=== PATIENT | female | born 1970 | race Two or more races ===

== ENCOUNTER 2024-09-19 16:55 | Emergency (ER) | payer MEDICAID, SELFPAY ==
[2024-09-19 17:24] VITALS: BP 146/81; PULSE 89; RESP 19; TEMP 37.1; O2SAT 97; BMI 31.2
--- NOTE | 2024-09-19 17:36 | PD.EDDENTL ---
ED Dental RME/HPI General Chief complaint: Dental/Oral/Throat Stated complaint: SORE THROAT X 10 DAYS; MEDICINE DID NOT HELP Time Seen by Provider: 09/19/24 17:03 Arrival date/time: 09/19/24 16:55 53-year-old female reports with complaints of 2-day history of a sore throat and ear pain. Patient was treated by her primary care provider with azithromycin but she reports no improvement of symptoms. Patient states that she has episodic fever for which she has been taking Tylenol with last dose sometime this morning she denies cough congestion headache dizziness nausea or vomiting. Limitations: no limitations Related Data Home Medications ?Medication ?Instructions ?Recorded ?Confirmed ferrous sulfate 325 mg (65 mg 325 mg PO QDAY 06/18/22 12/31/22 iron) tablet (FeroSul) metformin 1,000 mg tablet 850 mg PO BID 06/18/22 12/31/22 carvedilol 6.25 mg tablet 6.25 mg PO BID 12/31/22 12/31/22 Previous Rx's ?Medication ?Instructions ?Recorded clopidogrel 75 mg tablet 75 mg PO DAILY #30 tabs 01/01/23 atorvastatin 40 mg tablet 40 mg PO QDAY #30 tabs 03/24/24 dextromethorphan-guaifenesin 10 1 tab-cap PO Q8H PRN cough #30 caps 04/16/24 mg-200 mg capsule (Robitussin Cough-Chest Congestion DM) Allergies Allergy/AdvReac Type Severity Reaction Status Date / Time Milk Containing Products Allergy Severe Diarrhea Verified 09/19/24 16:59 (Dairy) (Milk Containing Products) Review of Systems Constitutional Constitutional: Denies chills, Reports fever(s) and Denies headache(s) ENT Ears, Nose, Mouth, and Throat: Denies headache(s), Reports nasal congestion, Denies neck pain, Denies post nasal drip, Denies sinus pressure, Reports sore throat and Denies vertigo Cardiovascular Cardiovascular: Denies chest pain and Denies dyspnea Respiratory Respiratory: Denies cough and Denies dyspnea Gastrointestinal Gastrointestinal: Denies nausea and Denies vomiting Musculoskeletal Musculoskeletal: Denies neck pain Integumentary/Breasts Skin/Breast: Reports erythema and Denies rash Neurologic Neurologic: Denies headache(s) and Denies vertigo Past Medical History Past Medical History NEUROLOGIC: Negative Neurological Disorders or Seizures CARDIAC: Positive Edema; Negative Cardiac Disorders, Congestive Heart Failure or Hypertension RESPIRATORY: Negative Chronic Obstructive Pulmonary Disease (COPD), Asthma or Bronchitis GASTROINTESTINAL: Positive Gastrointestinal Disorders, Hepatitis and Cirrhosis; Negative Gastrointestinal Bleed or Colorectal Cancer GENITOURINARY: Positive Genitourinary Disorders and Kidney Stones; Negative Renal Disease, Dialysis or Prostate Cancer REPRODUCTIVE: Positive Endometriosis and Previous Pregnancies; Negative Breast Cancer, Pelvic Inflammatory Disease or Testicular Cancer MUSCULOSKELETAL: Negative Musculoskeletal Disorders, Bone Cancer, Arthritis, Carpal Tunnel Syndrome or Fractures ENDOCRINE: Negative Endocrine Disorders, Diabetes Mellitus Type 1, Diabetes Mellitus Type 2 or Hypothyroidism HEMATOLOGIC: Positive Blood Disorders and Anemia; Negative Sickle Cell Disease OTHER HISTORY: Positive Hospitalization, Chicken Pox, Cancer and Ovarian Cancer; Negative Autoimmune Disease, Falls, Blood Transfusions, Blood Transfusion Reaction, Anesthesia Reactions, Organ Transplant, Measles, Mumps, Breast Cancer, Cervical Cancer, Colorectal Cancer, Lung Cancer, Prostate Cancer or Testicular Cancer Family History FAMILY HISTORY: Positive Family Cardiac Disorders and Family Surgery; Negative Family Psychiatric Problems, Family Respiratory Disorders, Family Gastrointestinal Problems, Family Cancer or Family Anesthesia Reaction Surgical History SURGICAL: Positive Angiogram; Negative Abdominal Surgery, Nephrectomy, Transurethral Resection, Joint Replacement, Amputation, Open Reduction Internal Fixation, Arthroscopy, Neurologic Surgery, Brain Shunt, Mastectomy, Lumpectomy, Hysterectomy, Tubal Ligation, Section, Vasectomy or Organ Transplant Social History SMOKING STATUS: Never smoker SUBSTANCE USE: does not use ED Exam General Limitations: Present no limitations General appearance: Present alert and in no apparent distress Head Head exam: Present atraumatic Eye Eye exam: Present normal appearance, PERRL and EOMI ENT ENT exam: Present normal exam, normal oropharynx and mucous membranes moist Neck Neck exam: Present normal inspection, full ROM and trachea midline Chest Chest inspection: Present normal inspection and symmetric chest wall rise Respiratory Respiratory exam: Present normal lung sounds bilaterally Cardiovascular Cardiovascular exam: Present regular rate, normal rhythm and normal heart sounds Neurological Exam Neurological exam: Present alert, oriented X3 and CN II-XII intact Psychiatric Psychiatric exam: Present normal affect and normal mood Skin Skin exam: Present warm, dry, intact and normal color Course Quality Measures none Orders Category Date Time Status Bedside Influenza A&B Antigen Test NOW Care 09/19/24 17:35 Completed Strep A Rapid Stat Lab 09/19/24 17:38 Completed Vital Signs Vital signs: Vital Signs Temperature 98.7 F 09/19/24 17:24 Pulse Rate 89 09/19/24 17:24 Respiratory Rate 19 09/19/24 17:24 Blood Pressure 146/81 H 09/19/24 17:24 Pulse Oximetry (%) 97 09/19/24 17:24 Oxygen Delivery Method Room Air 09/19/24 17:24 Dental / Oral Patient data External records reviewed:: None Clinical information provided by:: patient Social determinants that could affect healthcare access:: none Patient has the following chronic illnesses:: none How is presenting disease/condition affected by chronic disease/condition?: no chronic disease Evaluation data The following diagnostics were reviewed and interpreted by me:: lab results Lab and/or radiology exams considered but not ordered:: none Interpretation Summary: flu Medications / Prescriptions Medications or Prescriptions considered but not ordered:: none Medication administrations:: none Consultations Consultation(s) initiated? (list below): No Diagnosis Most likely diagnosis given after review of the tests above:: flu Admission Indicated Admission indicated?: not indicated Admission Request Was there a request for admission?: No Disposition Plan Disposition Plan: Discharge Discharge Attestation Discharge Attestation: The patient and all family members were given an opportunity to ask questions and understood the discharge instructions. Discharge instructions specifically effects, indications for sooner follow up or return to the emergency department, and the expected course of current diagnosis. Patient condition: Stable Discharge Plan Plan Patient Disposition: HOME (Self Care) Prescriptions/Referrals Prescriptions/Med Rec: No Action carvedilol 6.25 mg tablet 6.25 mg PO BID clopidogrel 75 mg Tablet 75 mg PO DAILY Qty: 30 0RF atorvastatin 40 mg tablet 40 mg PO QDAY Qty: 30 0RF Robitussin Cough-Chest Rj DM 10-200 mg capsule 1 tab-cap PO Q8H PRN (Reason: cough) Qty: 30 0RF ferrous sulfate [FeroSul] 325 mg (65 mg iron) tablet 325 mg PO QDAY Patient Comments: TAKE 1 TABLET BY MOUTH ONCE DAILY metformin 1,000 mg tablet 850 mg PO BID Patient Comments: TAKE 1 TABLET BY MOUTH TWICE DAILY WITH A MEAL Referrals: Chris Agee MD [Primary Care Provider] - In 1 week Problem List Clinical Impression: Flu Patient/Caregiver Discharge Instructions Discharge Activity: activity as tolerated Education Materials: ED Influenza (Adult) Additional Instructions: Take jzzb-hma-npagoit medication such as TheraFlu for your symptoms hydrate well follow-up with your primary care provider if no improvement in 5 days Print Language: Slovenian Stand Alone Forms: Maye Award Info., Patient Portal Info Letter
[2024-09-19 18:55] LABS: Strep A Rapid Negative (Negative)
[2024-09-19] MEDS: IBUPROFEN TAB 400 MG TABLET 800 MG PO (20:08)
== END 2024-09-19 20:10 | disposition home or self-care (01) ==
PROVIDERS: Physician Assistant; Emergency Provider Emergency Medicine; PCP Family Medicine
DX: J11.1 Influenza due to unidentified influenza virus with other respiratory manifestations (principal)
CPT/HCPCS: 87400; 87651; 99283; A9270

== ENCOUNTER 2024-10-27 18:23 | Emergency (ER) | payer MEDICAID, SELFPAY ==
--- NOTE | 2024-10-27 18:30 | EKG_ITS ---
[facility] Test Date: 2024-10-27 Pat Name: JUANA CID Department: Room: - Gender: Female Freezer Person: : 1970 Requested By: Ward Pineda Order Number: [id number] Reading MD: Ward Pineda Measurements Intervals [place] Rate: 71 P: 33 HI: 145 QRS: 4 QRSD: 100 T: 55 QT: 435 QTc: 476 Interpretive Statements SINUS RHYTHM POSSIBLE ANTERIOR MYOCARDIAL INFARCTION , OF INDETERMINATE AGE [30 ms Q WAVE IN V3/V4, OR R < 0.2 mV IN V4] Compared to ECG 03/23/2024 09:51:33 Myocardial infarct finding now present T-wave abnormality no longer present /store/S0/[id number].pdf
[2024-10-27 19:18] VITALS: BP 145/68; PULSE 74; RESP 18; TEMP 36.8; O2SAT 97; BMI 28.8
--- NOTE | 2024-10-27 19:34 | XR_ITS ---
Examination: PA chest single view Technique: Upright PA chest single view Indications: Chest pain shortness of breath today. Findings: Mild enlargement cardiac contour Significant vascular congestion. Suspicious for early septal edema at the lung bases Moderate osteopenia Impression: Early heart failure
--- NOTE | 2024-10-27 19:35 | PD.EDRME ---
Rapid Medical Screening Exam FOR[facility], [facility] Arrival date/time: 10/27/24 18:23 53F with history of DM, TIA, HTN, uterine cancer, cirrhosis, and hep C presents to ED with several days of CP, SOB, and generalized body swelling including facial swelling. Chief Complaint: Shortness of Breath/Dyspnea Vital signs: Vital Signs Temperature 98.3 F 10/27/24 19:18 Pulse Rate 74 10/27/24 19:18 Respiratory Rate 18 10/27/24 19:18 Blood Pressure 145/68 H 10/27/24 19:18 Pulse Oximetry (%) 97 10/27/24 19:18 Oxygen Delivery Method Room Air 10/27/24 19:18
[2024-10-27 20:41] LABS: Basophils % (Auto) 1 % (0-2.5); Eosinophils # (Auto) 0.1 Thou/mm3 (0.0-0.5); Eosinophils % (Auto) 4 % (0-10); Hematocrit 30.8 % (36.0-46.0); Immature Granulocytes % (Auto) 0 % (0-0); Immature Granulocytes Auto 0.01 Thou/mm3 (0.00-0.00); Lymphocytes # (Auto) 0.5 Thou/mm3 (1.0-4.8); Lymphocytes % (Auto) 15 % (10-50); Mean Corpuscular HGB Conc 35.7 g/dl (31.0-37.0); Mean Corpuscular Hemoglobin 32.9 pg (25.0-35.0); Mean Corpuscular Volume 92 fL (80-100); Monocytes # (Auto) 0.3 Thou/mm3 (0.0-0.8); Monocytes % (Auto) 10 % (0-12); Neutrophils # (Auto) 2.4 Thou/mm3 (1.8-7.7); Neutrophils % (Auto) 70 % (37-80); Nucleated Red Blood Cell % 0 /100 WBC (0); RDW Standard Deviation 47.9 fL (36.4-46.3); Red Blood Count 3.34 Miln/mm3 (4.00-5.20); White Blood Count 3.4 Thou/mm3 (3.6-11.0)
[2024-10-27 20:46] LABS: B-Type Natriuretic Peptide 88 pg/mL (0-100)
[2024-10-27 20:47] LABS: Alanine Aminotransferase 18 U/L (10-49); Albumin, Serum 3.4 gm/dL (3.5-5.0); Alkaline Phosphatase 151 U/L (46-116); Anion Gap 8 (7-16); Aspartate Amino Transferase 37 U/L (0-34); BUN/Creatinine Ratio 13 Ratio (12-20); Blood Urea Nitrogen 9 mg/dL (9-23); Calcium 9.1 mg/dL (8.3-10.6); Calcium (Corrected) 9.6 mg/dL (8.5-10.1); Carbon Dioxide 23.8 mMol/L (20.0-31.0); Chloride 111 mMol/L (98-107); Creatinine (Component) 0.7 mg/dL (0.6-1.3); Estimated Creatinine Clearance 96.2 mL/min (>60); Globulin 3.3 gm/dL (2.3-3.5); Glucose 188 mg/dL (74-106); Lipase 52 U/L (12-53); Osmolality,Calculated 288 (275-295); Potassium 3.8 mMol/L (3.4-5.1); Sodium 143 mMol/L (136-145); Total Protein 6.7 gm/dL (5.7-8.2); Troponin I < 0.020 ng/mL (0.0-0.045); eGFR > 60 See Note
[2024-10-27 20:49] LABS: Platelet Count 46 Thou/mm3 (140-440); Slide Review Platelets confirmed
[2024-10-27 23:08] VITALS: BP 147/82; PULSE 70; RESP 18; TEMP 36.6; O2SAT 98
[2024-10-28 03:27] VITALS: BP 137/84; PULSE 69; RESP 19; TEMP 36.2; O2SAT 98
[2024-10-28 07:16] VITALS: BP 150/79; PULSE 87; RESP 18; TEMP 36.4; O2SAT 97
--- NOTE | 2024-10-28 08:08 | PD.EDSOB ---
ED SOB =RME/HPI General Chief Complaint: Shortness of Breath/Dyspnea Stated Complaint: FACE AND BODY SWOLLEN X AM; PAIN WITH BREATHING, C Time Seen by Provider: 10/27/24 22:08 Arrival date/time: 10/27/24 18:23 RME / HPI RME / HPI Narrative: 10/27/24 18:23 53F with history of DM, TIA, HTN, uterine cancer, cirrhosis, and hep C presents to ED with several days of CP, SOB, and generalized body swelling including facial swelling. [facility] Main ED Evaluation 53 year old female presented to the ER with complaints of swelling of the legs. Symptoms of shortness of breath with physical movement, and chest pain when deep breathing started yesterday. Similar symptoms occurred in 2014 and was diagnosed with a blood clot in her neck. Patient was treated with anticoagulants and a blood transfusion for anemia. Patient has history of diabetes. hyperlipidemia, and anemia. Related Data Home Medications ?Medication ?Instructions ?Recorded ?Confirmed ferrous sulfate 325 mg (65 mg 325 mg PO QDAY 06/18/22 12/31/22 iron) tablet (FeroSul) metformin 1,000 mg tablet 850 mg PO BID 06/18/22 12/31/22 carvedilol 6.25 mg tablet 6.25 mg PO BID 12/31/22 12/31/22 Previous Rx's ?Medication ?Instructions ?Recorded clopidogrel 75 mg tablet 75 mg PO DAILY #30 tabs 01/01/23 atorvastatin 40 mg tablet 40 mg PO QDAY #30 tabs 03/24/24 dextromethorphan-guaifenesin 10 1 tab-cap PO Q8H PRN cough #30 caps 04/16/24 mg-200 mg capsule (Robitussin Cough-Chest Congestion DM) Allergies Allergy/AdvReac Type Severity Reaction Status Date / Time Milk Containing Products Allergy Severe Diarrhea Verified 10/27/24 18:30 (Dairy) (Milk Containing Products) Review of Systems Review of Systems Systems Reviewed: All systems reviewed, normal except as documented Narrative Review of Systems: Constitutional: DENIES; Fevers Eyes: DENIES; Loss of vision Head/Ear/Nose: DENIES; Loss of hearing Throat: DENIES; Dysphagia Cardiovascular: + chest pain DENIES; dyspnea or syncope Respiratory: + Shortness of breath Gastrointestinal: DENIES; Rectal bleeding or melena. Genitourinary: DENIES; Dysuria (painful or difficult urination) Musculoskeletal: +swelling of legs DENIES; Arthralgia (pain in a joint),; Skin: DENIES; Rash Neurological: DENIES; Loss of function or movement Psychiatric: DENIES; recent major life stressor, emotional problem, illicit drug use or abuse Endocrinology: + weight gain Hematologic/Lymphatic: DENIES; Abnormal bruising Allergic/Immunologic: DENIES; Urticaria (hives) Past Medical History Past Medical History CARDIAC: Positive Edema GASTROINTESTINAL: Positive Gastrointestinal Disorders, Hepatitis and Cirrhosis GENITOURINARY: Positive Genitourinary Disorders and Kidney Stones REPRODUCTIVE: Positive Endometriosis and Previous Pregnancies HEMATOLOGIC: Positive Blood Disorders and Anemia OTHER HISTORY: Positive Hospitalization, Chicken Pox, Cancer and Ovarian Cancer Family History FAMILY HISTORY: Positive Family Cardiac Disorders and Family Surgery Surgical History SURGICAL: Positive Angiogram Social History SMOKING STATUS: Never smoker SUBSTANCE USE: does not use ED Exam Narrative Physical exam: Physical Exam: General: The vital signs were reviewed. The patient is non-toxic, in no apparent distress and appears healthy with a patent airway, no respiratory distress and has no apparent circulatory problems. Head & Scalp: Normocephalic, atraumatic. Face: Appears normal and is without lesions, deformity. Ears: Left external pinna appears normal. Right external pinna appears normal. Eyes: The sclera is anicteric. No obvious photophobia. The Left and Right Orbit/Lid/Conjunctiva appears normal without swelling, discoloration or injection. Nose: The nose is without deformity, discharge or tenderness; Throat: Appears normal. The mucous membranes are pink and moist without exudates, redness or mass seen. The tongue appears normal. Neck: The neck is supple and no apparent mass or adenopathy. Chest: The chest wall is normal in size and symmetry and has no chest wall tenderness or crepitus. The patient displays normal ventilator effort without retractions, accessory muscle use and has adequate air movement bilaterally with no wheezes and no rales. Cardiovascular: Regular rate and rhythm; No murmurs, rubs, or gallops; Gastrointestinal: The abdomen appears normal. No obvious hernias or mass. The abdomen is soft and benign, non-distended, with no pain, no guarding and no rebound tenderness. Bowel sounds are present and normal sounding. No CVA tenderness. Genitourinary: Back/Spine: Extremities/Musculoskeletal/lymphatic: The bilateral upper and lower extremities are warm. There is no evidence of arterial insufficiency. There is no evidence of venous insufficiency/edema. The patient spontaneously moves bilateral upper and lower extremities with no pain and no limitation of movement. There is no apparent, injury or trauma. Skin: The skin is warm, dry and intact. No rashes. No petechia. No purpura. No abnormal bruising. The color is appropriate with no cyanosis. Mental status/Psychiatric: Mental status is appropriate for age. The patient has no apparent delusions, visual hallucinations, no apparent audible hallucinations. The patient has no apparent suicidal thoughts/ideation and no apparent homicidal thoughts/ideation. Neurological: The patient is awake, alert, interactive, cordial, cooperative and is oriented to name and situation. The patient follows commands and answers historical question with no impairment. There is no visual disturbance apparent. The pupils are equal and reactive bilaterally with normal eye movements and no diplopia The bilateral upper and lower extremities have normal strength, normal range of motion and normal functioning. The gait, station and balance appear to be baseline with no acute change Course Course Course Narrative: chest xray ordered to help determine etiology of shortness of breath. Quality Measures none Orders Category Date Time Status CT Screening NOW Care 10/28/24 10:12 Completed EKG (ED ONLY) *Do not use* NOW Care 10/27/24 18:[address] angio chest Stat Exams 10/28/24 10:11 Completed EKG (ED Only) Stat Exams 10/27/24 18:30 Draft XR chest 1V portable Stat Exams 10/27/24 19:34 Completed B-Type Natriuretic Peptide Stat Lab 10/27/24 19:55 Completed CBC Stat Lab 10/27/24 19:55 Completed Comprehensive Metabolic Panel Stat Lab 10/27/24 19:55 Completed Lipase Stat Lab 10/27/24 19:55 Completed Troponin I Stat Lab 10/27/24 19:55 Completed Troponin I Stat Lab 10/28/24 10:19 Completed Vital Signs Vital signs: Vital Signs Temperature 98.3 F 10/27/24 19:18 Pulse Rate 74 10/27/24 19:18 Respiratory Rate 18 10/27/24 19:18 Blood Pressure 145/68 H 10/27/24 19:18 Pulse Oximetry (%) 97 10/27/24 19:18 Oxygen Delivery Method Room Air 04/10/25 19:18 Pulse ox is 97% on room air which is adequate. Shortness of Breath / Dyspnea MDM Narrative MDM Narrative:: Patient has a chief complaint of dyspnea on exertion feels numbness and tingling to her face and arm when she exerts herself and believes her legs are swollen. Clinically she has no obvious edema. Her lungs are clear. She has some history of a blood clot in her neck to put her on Plavix when she lived in [place] but the exact diagnosis is unknown to us. Medical workup today and note this patient has been here for a long time included white count of 3.4 hemoglobin of 11.0 platelet count is low at 46,000 but this is chronically low sodium 143 potassium 3 8 chloride 111 CO2 24 anion gap is 8 BUN 9 creatinine 0.7 glucose 188 total bilirubin is 2.0 but is chronically in this range. AST is 37 ALT is 18 troponin is negative BNP is negative urine was not collected. EKG reveals no ST elevation OR. CTA of the chest reveals no pulmonary embolus there is a small nodule pleural-based of unknown etiology or duration. This information was was explained to the patient at the time of discharge and was instructed to follow-up. Chest x-ray was essentially negative with questionable mild CHF changes although BNP was negative. A second troponin came back also negative. Went back and rediscussed the whole case with the patient as the medical workup is essentially negative. And she is having no chest pain no shortness of breath at rest. She still states she is asking why her left face and left arm has numbness and she states this only occurs when she exerts herself. We ambulated the patient around the department and she had no reproduction of her shortness of breath or numbness or tingling in her face or left arm. Currently patient has no objective findings there is no evidence of stroke as there is no other symptomatology and patient was feeling much better and desires to go home. She is nicky follow-up with her doctor get referred to her specialist and return if getting worse in any way. She was clearly instructed to make an appointment to follow-up with her doctor about the nodule that this will need to follow-up and copies of the CT were given to her so her doctor will have the information Patient data External records reviewed:: [facility] previous records Clinical information provided by:: patient Social determinants that could affect healthcare access:: none Patient has the following chronic illnesses:: hyperlipidemia, hypertension, type 2 diabetes How is presenting disease/condition affected by chronic disease/condition?: exacerbated by Evaluation data The following diagnostics were reviewed and interpreted by me:: lab results, radiology exam(s) and EKG tracing(s) ( EKG#1: EKG at xx hours. Interpreted by me: sinus rhythm, rate xx) Lab and/or radiology exams considered but not ordered:: none Interpretation Summary: Ordering Physician: Ward Pineda PA-C Date of Service: 10/27/24 Procedure(s): XR chest 1V portable Accession Number(s): [id number] cc: María Agee MD; Gerhard Hurley MD; Ward Pineda PA-C~ Examination: PA chest single view Technique: Upright PA chest single view Indications: Chest pain shortness of breath today. Findings: Mild enlargement cardiac contour Significant vascular congestion. Suspicious for early septal edema at the lung bases Moderate osteopenia Impression: Early heart failure Dictated By: Gerhard Hurley MD Signed By: <Electronically signed by Gerhard Hurley MD in [place]> 10/27/242037 Ordering Physician: Brandon Durant MD Date of Service: 10/28/24 Procedure(s): CT angio chest Accession Number(s): [id number] cc: Chris Mejias MD; María Agee MD; Brandon Durant MD~ Examination: CTA chest with intravenous contrast 2-D reconstructions 3-D reconstructions, vascular Date and time of exam: 10/28/2024, 12:33 PM INDICATION: Chest pain shortness of breath CTDI: vol (mGy) 17.56 DLP: (mGycm) 397 Technique: Multiple axial sections of the thorax have been obtained. 3 mm slice thickness, from below the hemidiaphragms to above the apices of the lungs. Mediastinal and lung density settings have been obtained. 2-D sagittal and coronal reconstructions. 3-D angiographic renderings, 3-D volume renderings, 3D post processing, vascular maximum intensity projections obtained. Contrast administered is 100 MLS Isovue-370. Low dose protocols were performed. One or more of the following dose reduction techniques were used; automated exposure control, adjustment of the mA and/or KV according to patient size, use of iterative reconstruction technique. Findings: Pulmonary arterial system opacifies normally without evidence of filling defects. Aorta appears unremarkable. 2.7 x 1.7 cm pleural-based oval mass posterior right lower lobe. Trace left pleural effusion. Right apical scarring. Lungs otherwise clear. No pneumothorax. No acute bony abnormality. IMPRESSION: No evidence of pulmonary embolism. 2.7 x 1.7 cm mass right lower lobe as above. Differential diagnosis includes benign and malignant etiologies and includes round pneumonia. Follow-up management according to Fleischner's side guidelines is recommended. Dictated By: Chris Mejias MD Signed By: <Electronically signed by Chris Mejias MD in OV> 10/28/24 1316 Medications / Prescriptions Medications or Prescriptions considered but not ordered:: none Medication administrations:: see above (if any) Consultations Consultation(s) initiated? (list below): Yes Consultation #1 (Physician, Specialty, Details): [id number]: I spoke with Dr. Rosario, Cleaning Attendant, regarding echo on 03/23/24 Diagnosis Shortness of Breath Differential Diagnosis: acute exacerbation of chronic obstructive airways disease, congestive heart failure, community acquired pneumonia and pulmonary embolism Most likely diagnosis given after review of the tests above:: CHARLES thrombocytopenia lung nodule Admission Indicated Admission indicated?: not indicated Admission Request Was there a request for admission?: No Disposition Plan Disposition Plan: Discharge Discharge Attestation Discharge Attestation: The patient and all family members were given an opportunity to ask questions and understood the discharge instructions. Discharge instructions specifically effects, indications for sooner follow up or return to the emergency department, and the expected course of current diagnosis. Patient condition: Stable Discharge Plan Plan Patient Disposition: HOME (Self Care) Prescriptions/Referrals Prescriptions/Med Rec: No Action carvedilol 6.25 mg tablet 6.25 mg PO BID clopidogrel 75 mg Tablet 75 mg PO DAILY Qty: 30 0RF atorvastatin 40 mg tablet 40 mg PO QDAY Qty: 30 0RF Robitussin Cough-Chest Rj DM 10-200 mg capsule 1 tab-cap PO Q8H PRN (Reason: cough) Qty: 30 0RF ferrous sulfate [FeroSul] 325 mg (65 mg iron) tablet 325 mg PO QDAY Patient Comments: TAKE 1 TABLET BY MOUTH ONCE DAILY metformin 1,000 mg tablet 850 mg PO BID Patient Comments: TAKE 1 TABLET BY MOUTH TWICE DAILY WITH A MEAL Referrals: María Agee MD [Primary Care Provider] - In 1 week Problem List Clinical Impression: CHARLES (dyspnea on exertion), Lung nodule, Thrombocytopenia Patient/Caregiver Discharge Instructions Education Materials: ED Shortness of Breath (Dyspnea), ED Pulmonary Nodule, Solitary Additional Instructions: Today had a workup including a CT of your chest which reveals no pulmonary embolus and troponin was negative twice today. There is no evidence of a heart attack. The cause of your shortness of breath with exertion is unclear. Make sure you follow-up with your doctor to address this further and return if you are getting worse. As we discussed you have a nodule in the periphery of the lung which may be pleural or lung based. This will need follow-up as the etiology or cause of this is unclear at this time. Take the CT scan report to your doctor and let them evaluate this and refer you as needed. Note that if you are getting worse in any way please return for reevaluation. Print Language: Greenlandic Stand Alone Forms: Maye Award Info., Patient Portal Info Letter
--- NOTE | 2024-10-28 10:11 | XR_ITS ---
Examination: CTA chest with intravenous contrast 2-D reconstructions 3-D reconstructions, vascular Date and time of exam: 10/28/2024, 12:33 PM INDICATION: Chest pain shortness of breath CTDI: vol (mGy) 17.56 DLP: (mGycm) 397 Technique: Multiple axial sections of the thorax have been obtained. 3 mm slice thickness, from below the hemidiaphragms to above the apices of the lungs. Mediastinal and lung density settings have been obtained. 2-D sagittal and coronal reconstructions. 3-D angiographic renderings, 3-D volume renderings, 3D post processing, vascular maximum intensity projections obtained. Contrast administered is 100 MLS Isovue-370. Low dose protocols were performed. One or more of the following dose reduction techniques were used; automated exposure control, adjustment of the mA and/or KV according to patient size, use of iterative reconstruction technique. Findings: Pulmonary arterial system opacifies normally without evidence of filling defects. Aorta appears unremarkable. 2.7 x 1.7 cm pleural-based oval mass posterior right lower lobe. Trace left pleural effusion. Right apical scarring. Lungs otherwise clear. No pneumothorax. No acute bony abnormality. IMPRESSION: No evidence of pulmonary embolism. 2.7 x 1.7 cm mass right lower lobe as above. Differential diagnosis includes benign and malignant etiologies and includes round pneumonia. Follow-up management according to Fleischner's side guidelines is recommended.
[2024-10-28 10:42] LABS: Troponin I < 0.020 ng/mL (0.0-0.045)
[2024-10-28 15:11] VITALS: BP 121/71; PULSE 83; RESP 16; TEMP 36.8; O2SAT 98
--- NOTE | 2024-10-28 15:40 | PC.NURSE ---
pt ambulated around unit x1 no complaints.
== END 2024-10-28 16:48 | disposition home or self-care (01) ==
PROVIDERS: Physician Assistant; Emergency Provider Emergency Medicine; PCP Family Medicine
DX: R06.09 Other forms of dyspnea (principal); R91.1 Solitary pulmonary nodule; D69.6 Thrombocytopenia, unspecified; E11.9 Type 2 diabetes mellitus without complications; I10 Essential (primary) hypertension; K74.60 Unspecified cirrhosis of liver; B19.20 Unspecified viral hepatitis C without hepatic coma; E78.5 Hyperlipidemia, unspecified; Z86.73 Personal history of transient ischemic attack (TIA), and cerebral infarction without residual deficits; Z85.42 Personal history of malignant neoplasm of other parts of uterus
CPT/HCPCS: 36415; 71045; 71275; 80053; 81001; 83690; 83880; 84484; 85025; 93005; 99285; A4649; Q9967

== ENCOUNTER 2024-12-31 17:46 | Emergency (ER) | payer MEDICAID, SELFPAY ==
--- NOTE | 2024-12-31 18:48 | PD.EDRECHK ---
ED Recheck Abnl Lab Rx-RME/HPI General Chief Complaint: Recheck/Abnormal Lab/Rx Stated Complaint: Pt. states her sugar has been high since Time Seen by Provider: 12/31/24 18:45 Arrival date/time: 12/31/24 17:46 RME / HPI RME / HPI narrative: This section includes all my notes and documentations, including HPI, PE, and ED course. Azam Arias MD HPI: 54 y/o female with Hx of Type II DM presents with elevated blood sugar level x 3 days. Patient's last blood sugar read just SHOP ROUTER after a meal was 277 mg/dL. Patient was doing well while taking Ozempic and had her dose of Metformin decrease to 1 per day, but now her blood sugar remains elevated. She was advised to increase Metformin last night, but has noted no improvement. Denies headache. No other complaints. ROS: All negative except as documented in HPI. Physical Exam: General: Alert and oriented. No acute distress when remaining still. Eyes: Conjunctivae and lids clear. ENT: No nasal congestion. Neck: Supple. Heart: RRR. Lungs: No respiratory distress. Good air movement. No rhonchi, wheezing, rales. Abdomen: Soft and nontender. Normal bowel sounds. No distension. No rebound or guarding. Back: No CVA tenderness. Skin: Warm and dry. Neuro: Alert and oriented X 3. I reviewed all diagnostic test results: Blood tests unremarkable except glucose 300. At this point, diagnoses include: Hyperglycemia. Treatment here included: Insulin. Recommended outpatient care. Based on my best medical judgment, made decision no further evaluation or treatment indicated at this time. Patient understands and agrees to the discharge instructions customized and printed, see below. Discharge Instructions from Dr. Arias printed for you: 1. After evaluation, your high blood sugar was treated with insulin. 2. Take Janumet twice daily as prescribed. Stop all your current home diabetic medications. 3. See a private doctor on 01/02/2025 for recheck and further care. Ask for help with better management of your diabetes. 4. Seek immediate medical care if home sugar level is over 400 or with any concerns. Below 400, there is no emergency. Azam Arias MD Related Data Home Medications ?Medication ?Instructions ?Recorded ?Confirmed ferrous sulfate 325 mg (65 mg 325 mg PO QDAY 06/18/22 12/31/22 iron) tablet (FeroSul) metformin 1,000 mg tablet 850 mg PO BID 06/18/22 12/31/22 carvedilol 6.25 mg tablet 6.25 mg PO BID 12/31/22 12/31/22 Previous Rx's ?Medication ?Instructions ?Recorded clopidogrel 75 mg tablet 75 mg PO DAILY #30 tabs 01/01/23 atorvastatin 40 mg tablet 40 mg PO QDAY #30 tabs 03/24/24 dextromethorphan-guaifenesin 10 1 tab-cap PO Q8H PRN cough #30 caps 04/16/24 mg-200 mg capsule (Robitussin Cough-Chest Congestion DM) sitagliptin phosphate 50 1 tab PO BID #60 tabs 12/31/24 mg-metformin 1,000 mg tablet (Janumet) Allergies Allergy/AdvReac Type Severity Reaction Status Date / Time Milk Containing Products Allergy Severe Diarrhea Verified 12/31/24 17:53 (Dairy) (Milk Containing Products) Review of Systems Review of Systems Systems Reviewed: All systems reviewed, normal except as documented Past Medical History Past Medical History CARDIAC: Positive Edema GASTROINTESTINAL: Positive Gastrointestinal Disorders, Hepatitis and Cirrhosis GENITOURINARY: Positive Genitourinary Disorders and Kidney Stones REPRODUCTIVE: Positive Endometriosis and Previous Pregnancies ENDOCRINE: Positive Diabetes Mellitus Type 2 HEMATOLOGIC: Positive Blood Disorders and Anemia OTHER HISTORY: Positive Hospitalization, Chicken Pox, Cancer and Ovarian Cancer Family History FAMILY HISTORY: Positive Family Cardiac Disorders and Family Surgery Surgical History SURGICAL: Positive Angiogram ED Exam Narrative Physical exam: Refer to HPI above Course Quality Measures none Orders Category Date Time Status Bilirubin,Direct Stat Lab 12/31/24 19:05 Completed CBC Stat Lab 12/31/24 19:05 Completed CMP [Comprehensive Metabolic Panel] Stat Lab 12/31/24 19:05 Completed Free T4 (Free Thyroxine) Stat Lab 12/31/24 19:05 Completed Hemoglobin A1C [Glycohemoglobin w (eAG)] Stat Lab 12/31/24 19:05 Completed Magnesium Stat Lab 12/31/24 19:05 Completed TSH [Thyroid Stimulating Hormone] Stat Lab 12/31/24 19:05 Completed UA, C/S IF [Urinalysis, C/S if Indicated] Stat Lab 12/31/24 18:52 Stop Req Insulin Regular Med 12/31/24 19:53 Discontinued 8 unit SC X1 ONE Vital Signs Vital signs: Vital Signs Temperature 99.1 F 12/31/24 18:57 Pulse Rate 80 12/31/24 18:57 Respiratory Rate 18 12/31/24 18:57 Blood Pressure 143/82 H 12/31/24 18:57 Pulse Oximetry (%) 95 12/31/24 18:57 Oxygen Delivery Method Room Air 12/31/24 18:57 Recheck / Abnormal Lab / Rx MDM Narrative MDM Narrative:: Scribe Attestation: Evelyne Martinez, am scribing for and in the presence of Dr. Arias. Provider Notation: Although this document has been carefully reviewed, there may still be some phonetic and other typographical errors.? These errors are purely grammatical due to imperfections in the software program and should not be construed in any way to? compromise the substance of the patient's medical care during this visit. 54 y/o female with Hx of Type II DM presents with elevated blood sugar level x 3 days. Patient's last blood sugar read just SHOP ROUTER after a meal was 277 mg/dL. Patient was doing well while taking Ozempic and had her dose of Metformin decrease to 1 per day, but now her blood sugar remains elevated. She was advised to increase Metformin last night, but has noted no improvement. Denies headache. No other complaints. Patient data External records reviewed:: [facility] previous records (Reviewed prior ED records from 10/28/24. Patient was seen for CHARLES (dyspnea on exertion).) Clinical information provided by:: patient Social determinants that could affect healthcare access:: none Patient has the following chronic illnesses:: Hepatitis, Cirrhosis, Kidney Stones, Endometriosis, Diabetes Mellitus Type 2, Anemia How is presenting disease/condition affected by chronic disease/condition?: exacerbated by Evaluation data The following diagnostics were reviewed and interpreted by me:: lab results Lab and/or radiology exams considered but not ordered:: None Interpretation Summary: I reviewed all diagnostic test results: Blood tests unremarkable except glucose 300. Medications / Prescriptions Medications or Prescriptions considered but not ordered:: None Medication administrations:: Medication Administration History Discontinued Medications Insulin Human Regular (Insulin Hum Regular 1 Unit/0.01 Ml (Per Unit)) 8 unit SC X1 ONE Stop: 12/31/24 19:54 Last Admin: 12/31/24 20:06 Dose: 8 unit Documented By: CORINE Co-signed By: EE Insulin Consultations Consultation(s) initiated? (list below): No Diagnosis Recheck Differential Diagnosis: other (Hyperglycemia, Medication-induced Hyperglycemia) Most likely diagnosis given after review of the tests above:: Hyperglycemia Admission Indicated Admission indicated?: not indicated Explain why admission is indicated or not indicated:: Without severe illness, there was no indication for admission. Admission Request Was there a request for admission?: No Disposition Plan Disposition Plan: Discharge Discharge Attestation Discharge Attestation: The patient and all family members were given an opportunity to ask questions and understood the discharge instructions. Discharge instructions specifically effects, indications for sooner follow up or return to the emergency department, and the expected course of current diagnosis. Patient condition: Stable Discharge Plan Plan Patient Disposition: HOME (Self Care) Prescriptions/Referrals Prescriptions/Med Rec: New Janumet 50-1,000 mg tablet 1 tab PO BID Qty: 60 0RF No Action carvedilol 6.25 mg tablet 6.25 mg PO BID clopidogrel 75 mg Tablet 75 mg PO DAILY Qty: 30 0RF atorvastatin 40 mg tablet 40 mg PO QDAY Qty: 30 0RF Robitussin Cough-Chest Rj DM 10-200 mg capsule 1 tab-cap PO Q8H PRN (Reason: cough) Qty: 30 0RF ferrous sulfate [FeroSul] 325 mg (65 mg iron) tablet 325 mg PO QDAY Patient Comments: TAKE 1 TABLET BY MOUTH ONCE DAILY metformin 1,000 mg tablet 850 mg PO BID Patient Comments: TAKE 1 TABLET BY MOUTH TWICE DAILY WITH A MEAL Referrals: Chris Agee MD [Primary Care Provider] - In 1 week Problem List Clinical Impression: Hyperglycemia Patient/Caregiver Discharge Instructions Discharge Activity: activity as tolerated Education Materials: ED Diabetes with High Blood Sugar Additional Instructions: Discharge Instructions from Dr. Arias printed for you: 1. After evaluation, your high blood sugar was treated with insulin. 2. Take Janumet twice daily as prescribed. Stop all your current home diabetic medications. 3. See a private doctor on 01/02/2025 for recheck and further care. Ask for help with better management of your diabetes. 4. Seek immediate medical care if home sugar level is over 400 or with any concerns. Below 400, there is no emergency. Instrucciones de lo del Dr. Arias impresas para usted: 1. Tras la evaluaci?n, se trat? robbins nivel alto de az?car en drew con insulina. 2. [place] Janumet dos veces al d?a seg?n lo prescrito. Suspenda todos placido medicamentos para la diabetes que funmi actualmente en casa. 3. Consulte con un m?dico particular el 02/01/2025 para salvador nueva evaluaci?n y atenci?n adicional. Solicite ayuda para un mejor control de robbins diabetes. 4. Busque atenci?n m?dica inmediata si robbins nivel de az?car en casa es superior a 400 o si tiene alguna inquietud. Por debajo de 400, no hay emergencia. Print Language: Samoan Stand Alone Forms: Maye Award Info., Patient Portal Info Letter
[2024-12-31 18:57] VITALS: BP 143/82; PULSE 80; RESP 18; TEMP 37.3; O2SAT 95
[2024-12-31 19:19] LABS: Basophils % (Auto) 1 % (0-2.5); Eosinophils # (Auto) 0.1 Thou/mm3 (0.0-0.5); Eosinophils % (Auto) 2 % (0-10); Hematocrit 31.9 % (36.0-46.0); Hemoglobin 11.6 g/dL (12.0-16.0); Immature Granulocytes % (Auto) 0 % (0-0); Lymphocytes # (Auto) 0.6 Thou/mm3 (1.0-4.8); Lymphocytes % (Auto) 15 % (10-50); Mean Corpuscular HGB Conc 36.4 g/dl (31.0-37.0); Mean Corpuscular Hemoglobin 31.7 pg (25.0-35.0); Mean Corpuscular Volume 87 fL (80-100); Monocytes # (Auto) 0.4 Thou/mm3 (0.0-0.8); Monocytes % (Auto) 10 % (0-12); Neutrophils # (Auto) 3.2 Thou/mm3 (1.8-7.7); Neutrophils % (Auto) 73 % (37-80); Nucleated Red Blood Cell % 0 /100 WBC (0); Red Blood Count 3.66 Miln/mm3 (4.00-5.20); White Blood Count 4.3 Thou/mm3 (3.6-11.0)
[2024-12-31 19:33] LABS: Platelet Count 52 Thou/mm3 (140-440)
[2024-12-31 19:35] LABS: Glucose Estimated Average 186 mg/dL (80-131); Hemoglobin A1C 8.1 % Hgb (4.8-6.0)
[2024-12-31 19:44] LABS: Alanine Aminotransferase 24 U/L (10-49); Albumin, Serum 3.2 gm/dL (3.5-5.0); Alkaline Phosphatase 155 U/L (46-116); Anion Gap 10 (7-16); Aspartate Amino Transferase 34 U/L (0-34); BUN/Creatinine Ratio 6 Ratio (12-20); Bilirubin,Direct 0.8 mg/dL (0.0-0.3); Bilirubin,Total 2.3 mg/dL (0.3-1.2); Blood Urea Nitrogen 6 mg/dL (9-23); Calcium 8.3 mg/dL (8.3-10.6); Calcium (Corrected) 8.9 mg/dL (8.5-10.1); Chloride 108 mMol/L (98-107); Free T4 (Free Thyroxine) 1.04 ng/dL (0.89-1.76); Globulin 3.1 gm/dL (2.3-3.5); Glucose 300 mg/dL (74-106); Magnesium 1.6 mg/dL (1.6-2.6); Osmolality,Calculated 284 (275-295); Sodium 138 mMol/L (136-145); Thyroid Stimulating Hormone 0.95 uIU/mL (0.55-4.78); Total Protein 6.3 gm/dL (5.7-8.2); eGFR > 60 See Note
[2024-12-31] MEDS: INSULIN HUM REGULAR 1 UNIT/0.01 ML (PER UNIT) 8 UNIT SC (20:06)
[2024-12-31 20:13] LABS: Slide Review Platelets confirmed
[2024-12-31 20:22] VITALS: RESP 18
== END 2024-12-31 20:23 | disposition home or self-care (01) ==
PROVIDERS: Emergency Provider Emergency Medicine; PCP Family Medicine
DX: E11.65 Type 2 diabetes mellitus with hyperglycemia (principal)
CPT/HCPCS: 36415; 80053; 81001; 82248; 83036; 83735; 84439; 84443; 85025; 96372; 99283; J1815

== ENCOUNTER 2025-02-07 10:13 | Outpatient (RCR) | payer MEDICAID, SELFPAY | END 2025-02-16 23:59 | disposition home or self-care (01) | LOC: SCTC 10:13 | PROVIDERS: PCP Family Medicine; Referring Provider Family Medicine; Visit Provider Nurse Practitioner Family | DX: D69.6 Thrombocytopenia, unspecified (principal); R71.8 Other abnormality of red blood cells; D73.1 Hypersplenism; K74.60 Unspecified cirrhosis of liver; Z86.19 Personal history of other infectious and parasitic diseases; Z85.42 Personal history of malignant neoplasm of other parts of uterus | CPT/HCPCS: 99212; G0463 ==

== ENCOUNTER 2025-03-21 14:28 | Emergency (ER) | payer MEDICAID, SELFPAY ==
[2025-03-21 14:58] VITALS: BP 134/76; PULSE 87; RESP 18; TEMP 36.9; O2SAT 97
--- NOTE | 2025-03-21 15:07 | EKG_ITS ---
[facility] Test Date: 2025-03-21 Pat Name: JUANA CID Department: Room: - Gender: Female Supervisor Varnish: : 1970 Requested By: Scotty Carrillo Order Number: [id number] Reading MD: Scotty Carrillo Measurements Intervals [place] Rate: 76 P: 29 WI: 140 QRS: -9 QRSD: 109 T: 84 QT: 411 QTc: 464 Interpretive Statements SINUS RHYTHM MODERATE VOLTAGE CRITERIA FOR LVH, CONSIDER NORMAL VARIANT [MEETS CRITERIA IN ONE OF: R(aVL), S(V1), R(V5), R(V5/V6)+S(V1)] POSSIBLE ANTERIOR MYOCARDIAL INFARCTION , OF INDETERMINATE AGE [30 ms Q WAVE IN V3/V4, OR R < 0.2 mV IN V4] MODERATE T-WAVE ABNORMALITY, CONSIDER LATERAL ISCHEMIA [-0.1+ mV T-WAVE IN I/aVL/V5/V6] Compared to ECG 10/27/2024 19:17:14 T-wave abnormality now present Possible ischemia now present Myocardial infarct finding still present /store/S0/[id number]/ecg/[id number].pdf
--- NOTE | 2025-03-21 15:07 | XR_ITS ---
Examination: PA lateral chest 2 views TECHNIQUE: Upright PA lateral chest 2 views Date and time: March 21, 2025 1518 hours, comparison October 27, 2024 INDICATIONS: Chest pain dizziness today. FINDINGS: Normal heart size Lungs are clear. The osseous structures are demineralized IMPRESSION: No active disease
--- NOTE | 2025-03-21 15:07 | PD.EDRME ---
Rapid Medical Screening Exam E Arrival date/time: 03/21/25 14:28 54-year-old female with a history of hyperlipidemia, hypertension, type 2 diabetes presents to the emergency room with a chief complaint of sternal chest pain, weakness, fatigue x 2 days. Patient states she recently had heart surgery done a month ago. I have greeted and performed a focused initial assessment of this patient. A comprehensive ED assessment and evaluation of the patient, analysis of all test results, and completion of the medical decision making process will be conducted by additional ED providers. Chief Complaint: Nausea/Vomiting/Diarrhea Vital signs: Vital Signs Temperature 98.4 F 03/21/25 14:58 Pulse Rate 87 03/21/25 14:58 Respiratory Rate 18 03/21/25 14:58 Blood Pressure 134/76 H 03/21/25 14:58 Pulse Oximetry (%) 97 03/21/25 14:58 Oxygen Delivery Method Room Air 03/21/25 14:58 Vital signs reviewed by provider: Yes
[2025-03-21 16:14] LABS: Basophils # (Auto) 0.0 Thou/mm3 (0.0-0.2); Basophils % (Auto) 0 % (0-2.5); Eosinophils # (Auto) 0.1 Thou/mm3 (0.0-0.5); Eosinophils % (Auto) 3 % (0-10); Hematocrit 33.1 % (36.0-46.0); Hemoglobin 11.6 g/dL (12.0-16.0); Immature Granulocytes Auto 0.01 Thou/mm3 (0.00-0.00); Lymphocytes # (Auto) 0.5 Thou/mm3 (1.0-4.8); Lymphocytes % (Auto) 15 % (10-50); Mean Corpuscular HGB Conc 35.0 g/dl (31.0-37.0); Mean Corpuscular Hemoglobin 32.0 pg (25.0-35.0); Mean Corpuscular Volume 91 fL (80-100); Monocytes # (Auto) 0.3 Thou/mm3 (0.0-0.8); Monocytes % (Auto) 9 % (0-12); Neutrophils # (Auto) 2.6 Thou/mm3 (1.8-7.7); Neutrophils % (Auto) 73 % (37-80); Nucleated Red Blood Cell # 0.00 Thou/mm3 (0.00-0.00); Nucleated Red Blood Cell % 0 /100 WBC (0); RDW Standard Deviation 47.8 fL (36.4-46.3); Red Blood Count 3.63 Miln/mm3 (4.00-5.20); White Blood Count 3.6 Thou/mm3 (3.6-11.0)
[2025-03-21 16:33] LABS: Collection Type, Urine Clean Catch
[2025-03-21 16:34] LABS: Platelet Count 46 Thou/mm3 (140-440)
[2025-03-21 16:36] LABS: B-Type Natriuretic Peptide 48 pg/mL (0-100)
[2025-03-21 16:41] LABS: Alanine Aminotransferase 19 U/L (10-49); Albumin, Serum 3.5 gm/dL (3.5-5.0); Albumin/Globulin Ratio 1.3 (1.2-2.2); Anion Gap 11 (7-16); Aspartate Amino Transferase 34 U/L (0-34); BUN/Creatinine Ratio 13 Ratio (12-20); Bilirubin,Total 2.8 mg/dL (0.3-1.2); Blood Urea Nitrogen 10 mg/dL (9-23); Calcium 9.4 mg/dL (8.3-10.6); Calcium (Corrected) 9.8 mg/dL (8.5-10.1); Carbon Dioxide 22.7 mMol/L (20.0-31.0); Chloride 112 mMol/L (98-107); Creatinine (Component) 0.8 mg/dL (0.6-1.3); Estimated Creatinine Clearance 79.5 mL/min (>60); Globulin 2.8 gm/dL (2.3-3.5); Glucose 272 mg/dL (74-106); Magnesium 1.8 mg/dL (1.6-2.6); Osmolality,Calculated 299 (275-295); Potassium 3.7 mMol/L (3.4-5.1); Sodium 146 mMol/L (136-145); Total Protein 6.3 gm/dL (5.7-8.2); Troponin I < 0.020 ng/mL (0.0-0.045); eGFR > 60 See Note
[2025-03-21 16:42] LABS: Alkaline Phosphatase 104 U/L (46-116)
[2025-03-21 16:56] LABS: Bilirubin,Urine Negative (Negative); Blood,Urine Negative (Negative); Clarity,Urine Hazy (Clear/Hazy); Color,Urine Yellow (Lt Yel-Yel); Culture Indicated,Urine Not Indicated; Glucose, Urine Negative (Negative); Ketones,Urine Negative (Negative); Leukocyte Esterase,Urine Negative (Negative); Nitrite,Urine Negative (Negative); PH,Urine 6.5 (5.0-7.0); Protein,Urine Negative (Neg - Trace); RBC,Urine 4 /hpf (0-3); Specific Gravity,Urine 1.020 (1.001-1.035); Squamous Epithelial Cell,Urine 19 /hpf (0-5); Urobilinogen,Urine Negative mg/dL (0.0-1.0); WBC,Urine 8 /hpf (0-5)
[2025-03-21 17:03] LABS: INR 1.3 (0.9-1.3); Partial Thromboplastin Time 31.1 Seconds (22.0-36.0); Prothrombin Time 13.9 Seconds (9.0-12.2)
[2025-03-21 17:08] LABS: Slide Review Platelets confirmed
--- NOTE | 2025-03-21 18:57 | EDNOTE_ITS ---
Nausea/Vomit./Diarrhea-RME/HPI General Chief complaint: Nausea/Vomiting/Diarrhea Stated complaint: SEVERE N/V, DIZZY, SWEATING, CHEST PRESSURE Time Seen by Provider: 03/21/25 18:27 Arrival date/time: 03/21/25 14:28 RME / HPI RME / HPI Narrative: 03/21/25 14:28 54-year-old female with a history of hyperlipidemia, hypertension, type 2 diabetes presents to the emergency room with a chief complaint of sternal chest pain, weakness, fatigue x 2 days. Patient states she recently had heart surgery done a month ago. I have greeted and performed a focused initial assessment of this patient. A comprehensive ED assessment and evaluation of the patient, analysis of all test results, and completion of the medical decision making process will be conducted by additional ED providers. ----- See [facility] for Dr. Arias's HPI documentation. Related Data Home Medications ?Medication ?Instructions ?Recorded ?Confirmed ferrous sulfate 325 mg (65 mg 325 mg PO QDAY 06/18/22 12/31/22 iron) tablet (FeroSul) metformin 1,000 mg tablet 850 mg PO BID 06/18/2212/31 carvedilol 6.25 mg tablet 6.25 mg PO BID 12/31/2212/18 Previous Rx's ?Medication ?Instructions ?Recorded clopidogrel 75 mg tablet 75 mg PO DAILY #30 tabs 12/18 12/09 atorvastatin 40 mg tablet 40 mg PO QDAY #30 tabs 03/24 dextromethorphan-guaifenesin 10 1 tab-cap PO Q8H PRN c ough #30 caps 04/16/24 mg-200 mg capsule (Robitussin Cough-Chest Congestion DM) sitagliptin phosphate 50 1 tab PO BID #60 tabs mg-metformin 1,000 mg tablet (Janumet) acetaminophen 300 mg-codeine 30 mg 2 tab PO Q8H PRN pa in #20 tabs 03/21/25 tablet ondansetron 4 mg disintegrating 4 mg PO TID PRN nausea and 03/21/25 tablet vomiting 30 days #10 tabs Allergies Allergy/AdvReac Type Severity Reaction Status Date / Time Milk Containing Products Allergy Severe Diarrhea Verified 03/21/25 14:34 (Dairy) (Milk Containing Products) Review of Systems Review of Systems Systems Reviewed: All systems reviewed, normal except as documented Past Medical History Past Medical History NEUROLOGIC: Negative Neurological Disorders or Seizures CARDIAC: Positive Edema; Negative Cardiac Disorders, Congestive Heart Failure or Hypertension RESPIRATORY: Negative Chronic Obstructive Pulmonary Disease (COPD), Asthma or Bronchitis GASTROINTESTINAL: Positive Gastrointestinal Disorders, Hepatitis and Cirrhosis; Negative Gastrointestinal Bleed or Colorectal Cancer GENITOURINARY: Positive Genitourinary Disorders and Kidney Stones; Negative Renal Disease, Dialysis or Prostate Cancer REPRODUCTIVE: Positive Endometriosis and Previous Pregnancies; Negative Breast Cancer, Pelvic Inflammatory Disease or Testicular Cancer MUSCULOSKELETAL: Negative Musculoskeletal Disorders, Bone Cancer, Arthritis, Carpal Tunnel Syndrome or Fractures ENDOCRINE: Positive Diabetes Mellitus Type 2; Negative Endocrine Disorders, Diabetes Mellitus Type 1 or Hypothyroidism HEMATOLOGIC: Positive Blood Disorders and Anemia; Negative Sickle Cell Disease OTHER HISTORY: Positive Hospitalization, Chicken Pox, Cancer and Ovarian Cancer; Negative Autoimmune Disease, Falls, Blood Transfusions, Blood Transfusion Reaction, Anesthesia Reactions, Organ Transplant, Measles, Mumps, Breast Cancer, Cervical Cancer, Colorectal Cancer, Lung Cancer, Prostate Cancer or Testicular Cancer Family History FAMILY HISTORY: Positive Family Cardiac Disorders and Family Surgery; Negative Family Psychiatric Problems, Family Respiratory Disorders, Family Gastrointestinal Problems, Family Cancer or Family Anesthesia Reaction Surgical History SURGICAL: Positive Angiogram; Negative Abdominal Surgery, Nephrectomy, Transurethral Resection, Joint Replacement, Amputation, Open Reduction Internal Fixation, Arthroscopy, Neurologic Surgery, Brain Shunt, Mastectomy, Lumpectomy, Hysterectomy, Tubal Ligation, Section, Vasectomy or Organ Transplant Social History SMOKING STATUS: Never smoker SUBSTANCE USE: does not use ED Exam Narrative Physical exam: See [facility] for Dr. Arias's physical exam documentation. Course Quality Measures none Orders Category Date Time Status EKG (ED ONLY) *Do not use* NOW Care 03/21/25 15:[address] abdomen pelvis wo con Stat Exams 03/21/25 19:02 Completed EKG (ED Only) Stat Exams 03/21/25 15:07 Draft US abdomen limited Stat Exams 03/21/25 19:01 Completed XR chest 2V Stat Exams 03/21/25 15:07 Completed Amylase Stat Lab 03/21/25 15:40 Completed B-Type Natriuretic Peptide Stat Lab 03/21/25 15:40 Completed Bilirubin,Direct Stat Lab 03/21/25 15:40 Completed CBC Stat Lab 03/21/25 15:40 Completed Comprehensive Metabolic Panel Stat Lab 03/21/25 15:40 Completed Lipase Stat Lab 03/21/25 15:40 Completed Magnesium Stat Lab 03/21/25 15:40 Completed Partial Thromboplastin Time Stat Lab 03/21/25 15:40 Completed Prothrombin Time with INR Stat Lab 03/21/25 15:40 Completed Troponin I Stat Lab 03/21/25 15:40 Completed Urinalysis, C/S if Indicated Stat Lab 03/21/25 16:15 Completed Vital Signs Vital signs: Vital Signs Temperature 98.4 F 03/21/25 14:58 Pulse Rate 87 03/21/25 14:58 Respiratory Rate 18 03/21/25 14:58 Blood Pressure 134/76 H 03/21/25 14:58 Pulse Oximetry (%) 97 03/21/25 14:58 Oxygen Delivery Method Room Air 03/21/25 14:58 Nausea/Vomiting/Diarrhea MDM Narrative MDM Narrative:: This section includes all my notes and documentations, including HPI, PE, and ED course. Azam Arias MD HPI: 54yo female with right sided abdominal pain for the past several days. Has trouble localizing further. No nausea or vomiting. Eating normally. No other complaints. ROS: All negative except as documented in HPI. Physical Exam: General: Alert and oriented. No acute distress when remaining still. Eyes: Conjunctivae and lids clear. ENT: No nasal congestion. Neck: Supple. Heart: RRR. Lungs: No respiratory distress. Good air movement. No rhonchi, wheezing, rales. Abdomen: Soft and nontender. Normal bowel sounds. No distension. No rebound or guarding. Back: No CVA tenderness. Skin: Warm and dry. Neuro: Alert and oriented X 3. I reviewed all diagnostic test results. My interpretation of the EKG is sinus rhythm with no acute ST?T changes. My interpretation of the chest x-ray is NAD. My review of the abdominal US report is cholelithiasis. My review of the CT abdomen pelvis report is cholelithiasis. Blood tests and urine tests unremarkable. At this point, diagnoses include: Gallstones Recommended outpatient management. Based on my best medical judgment, made decision no further evaluation or treatment indicated at this time. Patient understands and agrees to the discharge instructions customized and printed, see below. Discharge Instructions from Dr. Arias: 1. After evaluation, your symptoms are due to gallstone(s). You need gallbladder to help digest fatty foods. See attached handout. 2. So to prevent future attacks, avoid all fatty and oily and greasy and buttery and dairy foods. This usually means take out and fast food restaurants. 3. Zofran for nausea/vomiting. Tylenol with codeine for severe pain. Clear liquid diet for 24 hours then advance diet slowly as tolerated. 4. See a private doctor on 03/22/25 for recheck and further care. Ask to review all test results and official radiology reports, to make sure you receive all necessary follow-ups and monitoring. Ask for help seeing a general surgeon to discuss elective surgery. 5. Seek immediate medical care with intolerable pain, fever, or with any concerns. Azam Arias MD Patient data External records reviewed:: [facility] previous records (Per chart review, patient was seen here on 12/31/24.) Clinical information provided by:: patient Social determinants that could affect healthcare access:: none Patient has the following chronic illnesses:: cirrhosis, DM How is presenting disease/condition affected by chronic disease/condition?: uneffected by Evaluation data The following diagnostics were reviewed and interpreted by me:: lab results, radiology exam(s) and EKG tracing(s) Lab and/or radiology exams considered but not ordered:: none Interpretation Summary: I reviewed all diagnostic test results. My interpretation of the EKG is sinus rhythm with no acute ST?T changes. My interpretation of the chest x-ray is NAD. My review of the abdominal US report is cholelithiasis. My review of the CT abdomen pelvis report is cholelithiasis. Blood tests and urine tests unremarkable. Medications / Prescriptions Medications / Prescriptions considered but not ordered:: none Medication administrations:: none Consultations Consultation(s) initiated? (list below): No Diagnosis Nausea Differential Diagnosis: gastroenteritis, dehydration and other (Biliary colic, PUD, gastritis, GERD, appendicitis, ureteral stone, SBO, diverticulitis) Most likely diagnosis given after review of the tests above:: Gallstones Admission Indicated Admission indicated?: not indicated Explain why admission is indicated or not indicated:: With no condition needing emergent intervention, there was no indication for admission. Admission Request Was there a request for admission?: No Disposition Plan Disposition Plan: Discharge Discharge Attestation Discharge Attestation: The patient and all family members were given an opportunity to ask questions and understood the discharge instructions. Discharge instructions specifically effects, indications for sooner follow up or return to the emergency department, and the expected course of current diagnosis. Patient condition: Stable Discharge Plan Plan Patient Disposition: HOME (Self Care) Prescriptions/Referrals Prescriptions/Med Rec: New acetaminophen-codeine 300-30 mg tablet 2 tab PO Q8H MDD 6 PRN (Reason: pain) Qty: 20 0RF ondansetron 4 mg tablet,disintegrating 4 mg PO TID PRN (Reason: nausea and vomiting) 30 Days Qty: 10 0RF No Action carvedilol 6.25 mg tablet 6.25 mg PO BID clopidogrel 75 mg Tablet 75 mg PO DAILY Qty: 30 0RF atorvastatin 40 mg tablet 40 mg PO QDAY Qty: 30 0RF Robitussin Cough-Chest Rj DM 10-200 mg capsule 1 tab-cap PO Q8H PRN (Reason: cough) Qty: 30 0RF ferrous sulfate [FeroSul] 325 mg (65 mg iron) tablet 325 mg PO QDAY Patient Comments: TAKE 1 TABLET BY MOUTH ONCE DAILY metformin 1,000 mg tablet 850 mg PO BID Patient Comments: TAKE 1 TABLET BY MOUTH TWICE DAILY WITH A MEAL Janumet 50-1,000 mg tablet 1 tab PO BID Qty: 60 0RF Referrals: Chris Agee MD [Primary Care Provider] - In 1 week Problem List Clinical Impression: Gallstones Patient/Caregiver Discharge Instructions Discharge Activity: activity as tolerated Education Materials: ED Gallstones with Biliary Colic Additional Instructions: Discharge Instructions from Dr. Arias: 1. After evaluation, your symptoms are due to gallstone(s).? You need gallbladder to help digest fatty foods. See attached handout. 2. So to prevent future attacks, avoid all fatty and oily and greasy and buttery and dairy foods.? This usually means take out and fast food restaurants. 3. Zofran for nausea/vomiting.? Tylenol with codeine for severe pain.? Clear liquid diet for 24 hours then advance diet slowly as tolerated. 4. See a private doctor on 03/22/25 for recheck and further care. Ask to review all test results and official radiology reports, to make sure you receive all necessary follow-ups and monitoring. Ask for help seeing a general surgeon to discuss elective surgery. 5. Seek immediate medical care with intolerable pain, fever, or with any concerns. Instrucciones de lo del Dr. Arias: 1. Despu?s de la evaluaci?n, placido s?ntomas se deben a c?lculos biliares. Necesita ves?cula biliar para digerir los alimentos grasos. Mckay el folleto adjunto. 2. Para prevenir futuros ataques, evite todos los alimentos grasosos, aceitosos, grasosos, con mantequilla y l?cteos. [place] generalmente implica comida para llevar y restaurantes de comida r?pida. 3. Zofran para n?useas y v?mitos. Tylenol con code?na para el dolor intenso. Dieta l?quida amos 24 horas y luego aumente la dieta gradualmente seg?n la tolerancia. 4. Consulte con un m?dico privado el 09/25/24 para salvador nueva revisi?n y atenci?n adicional. Solicite la revisi?n de todos los resultados de las pruebas y los informes radiol?gicos oficiales para asegurarse de recibir todos los seguimientos y la monitorizaci?n necesarios. Solicite ayuda para consultar con un cirujano general para hablar sobre salvador cirug?a electiva. 5. Busque atenci?n m?dica inmediata si presenta dolor insoportable, fiebre o cualquier inquietud. Print Language: Upper Sorbian Stand Alone Forms: Maye Award Info., Patient Portal Info Letter
--- NOTE | 2025-03-21 19:01 | XR_ITS ---
Examination: Abdomen sonogram, Limited Date and time of exam: March 21, 2025, 1913 hrs. Indications: Right flank pain right upper abdominal pain with nausea beginning 2 days ago. Technique: Real-time wyatt scale transabdominal sonographic images of the upper abdomen obtained. Findings: Multiple gallstones Gallbladder wall is thickened 0.5 cm Common bile duct enlarged 0.7 cm. Pancreatic head 3.0 cm. Liver 10.1 cm lobular margins fatty infiltration. Normal hepatopedal portal venous flow. Patent IVC. Impression: Cholelithiasis, suspicious for cholecystitis Enlarged common bile duct 0.7 cm Consider MRCP follow-up
--- NOTE | 2025-03-21 19:02 | XR_ITS ---
Examination: CT abdomen and pelvis without contrast. Coronal 3-D reconstructions. Sagittal 2-D reconstructions. Date and time of exam:March 21, 2025 10:34 PM, comparison February 12, 2022 Indications: Abdominal pain nausea vomiting today CTDI: vol (mGy): 10.1 DLP: (mGycm): 543 Technique: Axial images of the abdomen have been obtained, 3 mm slice thickness Intravenous contrast material has not been administered. Low dose protocols were performed. One or more of the following dose reduction techniques were used; automated exposure control, adjustment of the mA and/or KV according to patient size, use of iterative reconstruction technique. Findings: Stable focal parenchymal disease medial right lower lobe compared with February 12, 2022 Cirrhosis, liver nodular in contour with prominent splenomegaly Suspicious for tiny gallstones. Common bile duct 7 mm no stones No pancreatic or adrenal mass Portosystemic collateral vessels medial to the spleen 2 mm lower pole left renal calculus Prominent left renal vein Aorta normal size Normal appendix No bowel obstruction Absent uterus Intact urinary bladder Prominent osteopenia Impression: Cirrhosis, prominent splenomegaly Cholelithiasis, gallbladder wall does not appear thickened on this study compared to the abdomen sonogram, common bile duct 7 mm 2 mm lower pole nonobstructing right renal calculus right Prominent left renal vein, clinical correlation advised, recommend renal sonography follow-up Normal appendix No bowel obstruction
[2025-03-21 20:27] VITALS: BP 150/78; PULSE 80; RESP 18; TEMP 36.9; O2SAT 98
[2025-03-21 21:06] LABS: Bilirubin,Direct 1.0 mg/dL (0.0-0.3); Lipase 58 U/L (12-53)
[2025-03-21 21:18] LABS: Amylase 135 U/L (30-118)
== END 2025-03-21 23:03 | disposition home or self-care (01) ==
PROVIDERS: Nurse Practitioner Family; Emergency Provider Emergency Medicine; PCP Family Medicine
DX: K80.20 Calculus of gallbladder without cholecystitis without obstruction (principal); R94.31 Abnormal electrocardiogram [ECG] [EKG]; I10 Essential (primary) hypertension; E78.5 Hyperlipidemia, unspecified
CPT/HCPCS: 36415; 71046; 74176; 76705; 80053; 81001; 82150; 82248; 83690; 83735; 83880; 84484; 85025; 85610; 85730; 93005; 99284

== ENCOUNTER 2025-06-06 11:35 | Outpatient (RCR) | payer MEDICAID, SELFPAY | END 2025-06-18 23:59 | disposition home or self-care (01) | LOC: SCTC 11:35 | PROVIDERS: PCP Family Medicine; Referring Provider Family Medicine; Visit Provider Nurse Practitioner Family | DX: D69.6 Thrombocytopenia, unspecified (principal); D73.1 Hypersplenism; K74.60 Unspecified cirrhosis of liver; Z86.19 Personal history of other infectious and parasitic diseases; Z85.42 Personal history of malignant neoplasm of other parts of uterus; Z86.2 Personal history of diseases of the blood and blood-forming organs and certain disorders involving the immune mechanism | CPT/HCPCS: 99212; G0463 ==